=== PATIENT | female | born 1955 | race Caucasian/White ===

== ENCOUNTER → 2016-12-26 | Outpatient (CLI) | payer BC | LOC: MC.RAD 12:48 | DX: Z12.31 Encounter for screening mammogram for malignant neoplasm of breast (principal) ==

== ENCOUNTER → 2017-12-26 | Outpatient (CLI) | payer OTHER | LOC: MC.RAD 12:46 | DX: Z12.31 Encounter for screening mammogram for malignant neoplasm of breast (principal) ==

== ENCOUNTER → 2018-03-18 | Outpatient (CLI) | payer OTHER | LOC: COL.RAD 12:31 | DX: R13.12 Dysphagia, oropharyngeal phase (principal) ==

== ENCOUNTER 2018-03-25 13:30 | Outpatient (RCR) | payer OTHER | END 2018-06-08 | disposition still patient (30) | LOC: WSST | DX: R13.12 Dysphagia, oropharyngeal phase (principal); K21.9 Gastro-esophageal reflux disease without esophagitis; K22.70 Barrett's esophagus without dysplasia; E11.9 Type 2 diabetes mellitus without complications; Z79.84 Long term (current) use of oral hypoglycemic drugs; I10 Essential (primary) hypertension ==

== ENCOUNTER → 2019-01-08 | Outpatient (CLI) | payer BC | LOC: MC.RAD 12:49 | DX: Z12.31 Encounter for screening mammogram for malignant neoplasm of breast (principal) ==

== ENCOUNTER → 2020-02-18 | Outpatient (CLI) | payer BC | LOC: MC.RAD 01-14 13:30 | DX: Z12.31 Encounter for screening mammogram for malignant neoplasm of breast (principal) ==

== ENCOUNTER → 2021-02-20 | Outpatient (CLI) | payer BC ==
[~2021-02-20] MED LIST: ACIPHEX20 MG PO; ASPIRIN 81M81 MG/TA2 PO; FERROUSAL325 MG PO; GLUCOPHAGE500 MG/TAB PO; HCTZ 25MG TAB25 MG PO; LIPITOR 40MG TA40 MG PO; MOBIC15 MG PO; MULTI VITAMINS1 TAB PO; NATURAL MAGNES200 MG PO; TOPROL XL 25MG25 MG PO; VITAMIN D31000 I1 PO; VITAMINC1000TA PO
== END ==
LOC: MC.RAD 11:30
DX: Z12.31 Encounter for screening mammogram for malignant neoplasm of breast (principal)

== ENCOUNTER 2021-07-11 12:05 | Inpatient (IN) | payer MEDICARE ==
[~2021-07-11] VITALS: Ht 162.6 cm; Wt 106.8 kg
[2021-07-11] MEDS ORDERED: GLUCOPHAGE500 MG/TAB PO (12:32)
[2021-07-11] MEDS ORDERED: TOPROL XL 25MG25 MG PO (12:33)
[2021-07-11 13:09] LABS: BASO % 0.1 % (0.0-2.0); GRAN # 6.1 K/mm3 (1.4-6.5); GRAN % 81.5 % (42.2-75.2); HEMOGLOBIN 12.2 g/dl (12.5-16.0); LYMPH % 13.3 % (20.0-51.0); MEAN CELL VOLUME 81 fl (80.0-100.0); MEAN CORPUSCULAR HEMOGLOBIN 27 pg (27.0-31.0); MEAN CORPUSCULAR HGB CONC 34 g/dl (33.0-37.0); MEAN PLATELET VOLUME 9.4 fl (7.4-10.4); MONO # 0.4 K/mm3 (0.1-0.6); MONO % 4.7 % (1.7-9.3); PLATELET COUNT 244 K/mm3 (130-400); RED BLOOD COUNT 4.45 M/mm3 (4.10-5.30); REDCELL DISTRIBUTION WIDTH-CV 15.8 % (11.5-14.5)
[2021-07-11 13:11] LABS: HEMATOCRIT 35.9 % (37.0-47.0)
[2021-07-11 13:24] LABS: ALBUMIN 3.2 gm/dL (3.4-4.8); BILIRUBIN,TOTAL 1.4 mg/dL (0.2-1.2); CALCIUM 9.3 mg/dL (8.4-10.2); CREATININE, serum 1.2 mg/dL (0.57-1.11); POTASSIUM 3.5 mmol/L (3.5-4.5); TOTAL PROTEIN 7.3 gm/dL (6.2-8.1)
[2021-07-11] MEDS ORDERED: ASPIRIN 81M81 MG/TA2 PO (18:14)
[2021-07-11] MEDS ORDERED: VITAMINC1000TA PO (18:14)
[2021-07-11] MEDS ORDERED: FERROUSAL325 MG PO (18:15)
[2021-07-11] MEDS ORDERED: LIPITOR 40MG TA40 MG PO (18:15)
[2021-07-11] MEDS ORDERED: MULTI VITAMINS1 TAB PO (18:16)
[2021-07-11] MEDS ORDERED: MOBIC15 MG PO (18:16)
[2021-07-11] MEDS ORDERED: ACIPHEX20 MG PO (18:17)
[2021-07-11] MEDS ORDERED: HCTZ 25MG TAB25 MG PO (18:19)
[2021-07-11] MEDS ORDERED: NATURAL MAGNES200 MG PO (18:21)
[2021-07-11] MEDS ORDERED: VITAMIN D31000 I1 PO (18:23)
--- NOTE | 2021-07-11 20:06 | NUR ---
Patient is in room, alert and oriented x 4, O2 at 3L NC. SOB with exertion.
[2021-07-11 20:32] VITALS: BP 135/56; PULSE 93; TEMP 987.4
--- NOTE | 2021-07-11 22:52 | NUR ---
Called from lab with critical value reported Ddiemer [phone]. Called Hospitalist to notify multiple times. No answer.
[2021-07-12 01:51] VITALS: BP 132/64; PULSE 86; TEMP 97.4
[2021-07-12 05:19] VITALS: BP 141/68; PULSE 90; TEMP 97.6
--- NOTE | 2021-07-12 07:12 | NUR ---
Patient has been stable along the night. SOB with exertion. Continues with 3L NC. She has not been able to sleep because of the multiple interventions. Shift report given to day RN.
--- NOTE | 2021-07-12 07:30 | NUR ---
DR. SPANGLER NOTIFIED PT DID NOT HAVE DIET ORDER, ORDERED ADA DIET PER VERBAL ORDERS AND BREAKFAST ORDER PLACED FOR PT.
[2021-07-12 08:00] VITALS: BP 141/56; PULSE 91; TEMP 98.3
--- NOTE | 2021-07-12 10:44 | NUR ---
PT JOSH, AOX4, HAD OXYGEN OFF IN HAND AND HAD SAID IT HAD JUST COME OFF WHEN SHE TOOK OFF HER MASK AFTER THE ECHO TECHS HAD LEFT. PT OXYGEN PLACED BACK ON PT, PT SATTING 82% WHEN VITALS TAKEN. STAYED WITH PT AND GRADUALLY TURNED HER UP. STAYED WITH PT 45MIN RECOVERING HER OXYGEN AND ENDED UP ON 12L SATTING 90-91%. PT LABORED BREATHING, HAD NOT GOTTEN OUT OF BED, PLACED PT ON HIGH ABBY TUBING, INSTRUCTED HER TO NOT GET UP WITHOUT OXYGEN ON, PT ASSESSMENT PERFORMED, MEDICATIONS GIVEN, IV ANTIBIOTICS INFUSING, PT HAS COUGH, COUGH SYRUP GIVEN, BREAKFAST BROUGHT IN, NO OTHER NEEDS
[2021-07-12 12:01] VITALS: BP 127/60; PULSE 82; TEMP 98
--- NOTE | 2021-07-12 13:16 | NUR ---
The patient is COVID positive. SW contacted the patient to discuss discharge plan. The patient lives alone in [place]. She reports independence with ADLS and does not have any DME. The patient's PCP is Dr. Madonna Abrams and she receives her medications from [facility]. She reports no difficulties obtaining her meds. The patient does not have a DPOA-HC. SW inquired about completing one while here. The patient was interested in obtaining a form, but requested that SW just place a form on her chart, for when she goes home. She states that she is not and that she has two children: Stephania Alfonso (ph#[phone]) and Jean Castro (ph#[phone]). Stephania lives in [place] and Jean lives in [place], [place]. The patient plans on returning home upon discharge. The patient is currently requiring oxygen. SW to continue to monitor. *Discharge plan: home*
[2021-07-12 17:13] VITALS: BP 125/49; PULSE 79; TEMP 97.7
--- NOTE | 2021-07-12 19:04 | NUR ---
IV REMOVED TO LAC, PT EDUCATED ON OXYGEN LEVEL, BLOOD DRAWN FOR LAB, PT HAS DINNER ORDERED, INSULIN GIVEN, DENIES PAIN AT THIS TIME, NO OTHER NEED
--- NOTE | 2021-07-12 20:30 | NUR ---
Patient is sitted at the edge of the bed, alert and oriented x 4, denies pain, nausea or vomiting. SOB on ex. 10L O2 NC. Tele in place, NSR. Assessment completed, medications provided. No further needs at this time. Call light within reach.
[2021-07-13 00:55] VITALS: BP 146/66; PULSE 70; TEMP 97.6
[2021-07-13 03:38] VITALS: BP 136/61; PULSE 71; TEMP 98.6
--- NOTE | 2021-07-13 06:47 | NUR ---
Patient has been stable all night, she is at 8L O2 NC. Continues with cough. All needs met. Report given to day RN.
[2021-07-13 07:29] LABS: GRAN # 3.4 K/mm3 (1.4-6.5); GRAN % 73.8 % (42.2-75.2); HEMATOCRIT 38.4 % (37.0-47.0); HEMOGLOBIN 12.9 g/dl (12.5-16.0); LYMPH # 0.8 K/mm3 (1.2-3.4); LYMPH % 16.7 % (20.0-51.0); MEAN CELL VOLUME 81 fl (80.0-100.0); MEAN CORPUSCULAR HEMOGLOBIN 27 pg (27.0-31.0); MEAN CORPUSCULAR HGB CONC 34 g/dl (33.0-37.0); MEAN PLATELET VOLUME 9.3 fl (7.4-10.4); MONO # 0.4 K/mm3 (0.1-0.6); MONO % 8.9 % (1.7-9.3); PLATELET COUNT 275 K/mm3 (130-400); RED BLOOD COUNT 4.77 M/mm3 (4.10-5.30); REDCELL DISTRIBUTION WIDTH-CV 15.7 % (11.5-14.5)
[2021-07-13 07:48] LABS: C-REACTIVE PROTEIN 5.52 mg/dL (0.00-0.50); CALCIUM 8.9 mg/dL (8.4-10.2); CREATININE, serum 0.86 mg/dL (0.57-1.11)
[2021-07-13 07:51] LABS: POTASSIUM 2.9 mmol/L (3.5-4.5)
[2021-07-13 07:52] VITALS: BP 111/41; PULSE 73; TEMP 98.8
--- NOTE | 2021-07-13 08:50 | NUR ---
PT PLEASANT, AOX4, DENIES PAIN, WEARING NC AT 7L. ASSESSMENT PERFORMED, MEDICATIONS GIVEN, EDUCATED ON ALL MEDICATIONS GIVEN, BREAKFAST BROUGHT IN, FRESH ICE WATER BROUGHT IN, LOW POTASSIUM CALLED TO DR. SPANGLER AND POTASSIUM PROTOCOL ORDERED VERBALLY. PT GIVEN POTASSIUM, PT REQUESTING SHOWER WHEN HER DA BRINGS PT BELONGINGS, NO OTHER NEEDS
[2021-07-13 12:00] VITALS: BP 133/59; PULSE 73; TEMP 97.4
[2021-07-13 16:00] VITALS: BP 133/59; PULSE 73; TEMP 97.4
[2021-07-13 17:04] LABS: CLOSTRIDIUM DIFF A/B NEG; CLOSTRIDIUM DIFF A/B INTERP No C.diff present
--- NOTE | 2021-07-13 18:40 | NUR ---
PT PLEASANT, IND IN ROOM, SOB WITH ACTIVITY, TYLENOL GIVEN FOR PAIN, NO OTHER NEEDS
[2021-07-13 21:49] VITALS: BP 143/67; PULSE 83; TEMP 97.9
[2021-07-14 00:53] VITALS: BP 130/51; PULSE 70; TEMP 97.8
[2021-07-14 05:24] VITALS: BP 127/54; PULSE 68; TEMP 97.7
[2021-07-14 06:16] LABS: BASO % 0.1 % (0.0-2.0); GRAN # 5.2 K/mm3 (1.4-6.5); GRAN % 74.1 % (42.2-75.2); HEMOGLOBIN 11.5 g/dl (12.5-16.0); LYMPH # 1.2 K/mm3 (1.2-3.4); LYMPH % 17.4 % (20.0-51.0); MEAN CELL VOLUME 83 fl (80.0-100.0); MEAN CORPUSCULAR HEMOGLOBIN 28 pg (27.0-31.0); MEAN CORPUSCULAR HGB CONC 33 g/dl (33.0-37.0); MEAN PLATELET VOLUME 9.2 fl (7.4-10.4); MONO # 0.5 K/mm3 (0.1-0.6); PLATELET COUNT 368 K/mm3 (130-400); RED BLOOD COUNT 4.18 M/mm3 (4.10-5.30); REDCELL DISTRIBUTION WIDTH-CV 15.7 % (11.5-14.5)
[2021-07-14 06:31] LABS: CALCIUM 9.5 mg/dL (8.4-10.2); CREATININE, serum 0.79 mg/dL (0.57-1.11); POTASSIUM 3.6 mmol/L (3.5-4.5)
[2021-07-14 06:40] LABS: HEMATOCRIT 34.5 % (37.0-47.0)
[2021-07-14 08:26] VITALS: BP 138/61; PULSE 71; TEMP 97.9
--- NOTE | 2021-07-14 10:48 | NUR ---
PT ASSESSED. NO COMPLAINTS OF PAIN OR NAUSEA. NO SIGNS OR SYMPTOMS OF DISTRESS. CALL LIGHT WITHIN REACH
[2021-07-14 13:00] VITALS: BP 139/56; PULSE 72; TEMP 98.1
[2021-07-14 16:36] VITALS: BP 139/58; PULSE 80; TEMP 98.1
[2021-07-14 21:51] VITALS: BP 114/36; PULSE 68; TEMP 98.3
[2021-07-15] VITALS (7 sets, daily range): BP systolic 117–150; BP diastolic 43–79; PULSE 60–99; TEMP 97.5–98.6
--- NOTE | 2021-07-15 06:24 | NUR ---
am lab drawn from purple port of PICC w/o difficulty, unable to flush red port and no blood return. pt weaned to 7L O2 this shift from 9L. up ad john in room. SS required @HS
[2021-07-15 07:14] LABS: CALCIUM 9.4 mg/dL (8.4-10.2); CREATININE, serum 0.74 mg/dL (0.57-1.11); POTASSIUM 3.4 mmol/L (3.5-4.5)
[2021-07-15 08:12] LABS: HEMOGLOBIN 10.9 g/dl (12.5-16.0); MEAN CELL VOLUME 83 fl (80.0-100.0); MEAN CORPUSCULAR HEMOGLOBIN 28 pg (27.0-31.0); MEAN CORPUSCULAR HGB CONC 33 g/dl (33.0-37.0); MEAN PLATELET VOLUME 9.4 fl (7.4-10.4); PLATELET COUNT 332 K/mm3 (130-400); RED BLOOD COUNT 3.97 M/mm3 (4.10-5.30); REDCELL DISTRIBUTION WIDTH-CV 15.4 % (11.5-14.5)
[2021-07-15 10:05] LABS: ALBUMIN 2.7 gm/dL (3.4-4.8); BILIRUBIN,DIRECT 0.5 mg/dL (0.0-0.5); BILIRUBIN,TOTAL 1.3 mg/dL (0.2-1.2); TOTAL PROTEIN 5.8 gm/dL (6.2-8.1)
[2021-07-15 11:03] LABS: ANISOCYTOSIS 1+; HYPOCHROMIA 1+; LYMPHOCYTE 22 % (20.0-51.0); NEUTROPHILS 73 % (42.0-75.2); PLATELET ESTIMATE NORMAL (NORMAL)
--- NOTE | 2021-07-15 11:13 | NUR ---
PT ASSESSED. NO COMPLAINTS OF PAIN OR DYSPNEA. NO SIGNS OR SYMPTOMS OF DISTRESS. NO CONCERNS OR QUESTIONS AT THIS TIME. CALL LIGHT WITHIN REACH
[2021-07-16 03:52] VITALS: BP 113/62; PULSE 85; TEMP 97.5
--- NOTE | 2021-07-16 07:27 | NUR ---
pt weaned to 6L this shift, up ad john in room, SS given @HS, taking po well, no c/o pain or discomfort, PICC line patent/secure, to CLARISA.
[2021-07-16 07:47] LABS: HEMOGLOBIN 11.6 g/dl (12.5-16.0); MEAN CELL VOLUME 85 fl (80.0-100.0); MEAN CORPUSCULAR HEMOGLOBIN 27 pg (27.0-31.0); MEAN CORPUSCULAR HGB CONC 32 g/dl (33.0-37.0); MEAN PLATELET VOLUME 9.2 fl (7.4-10.4); PLATELET COUNT 364 K/mm3 (130-400); RED BLOOD COUNT 4.25 M/mm3 (4.10-5.30); REDCELL DISTRIBUTION WIDTH-CV 15.7 % (11.5-14.5)
[2021-07-16 07:54] LABS: HEMATOCRIT 36.1 % (37.0-47.0)
[2021-07-16 07:59] LABS: CALCIUM 9.7 mg/dL (8.4-10.2); CREATININE, serum 0.8 mg/dL (0.57-1.11); POTASSIUM 3.3 mmol/L (3.5-4.5)
[2021-07-16 08:00] VITALS: BP 128/57; PULSE 87; TEMP 97.5
[2021-07-16 09:20] LABS: LYMPHOCYTE 18 % (20.0-51.0); METAMYELOCYTE 1 % (0-0); NEUTROPHILS 78 % (42.0-75.2)
[2021-07-16 09:21] LABS: ANISOCYTOSIS 1+; PLATELET ESTIMATE NORMAL (NORMAL)
[2021-07-16 09:22] LABS: HYPOCHROMIA 1+; OVALOCYTES 1+
--- NOTE | 2021-07-16 11:03 | NUR ---
Scheduled medications given. Shift assessment performed. Patient currently requring 7.5 L of O2 via nasal cannula. Dyspnea upon exertion noted. Patient is afebrile and denies N/V but states that she does have diarrhea. PICC Line in place, flushes with good blood return. No S/S of complications. Patient denies any pain, discomfort, or further needs at this time. Call light in reach. Patient A&O.
[2021-07-16 12:00] VITALS: BP 108/48; PULSE 86; TEMP 98
--- NOTE | 2021-07-16 14:06 | NUR ---
BRENDA contacted the patient to follow up. The patient states that she is doing okay. She remains on 7 liters of oxygen. The patient reports that she still plans on returning home upon discharge. BRENDA discussed home health services and it's benefits. The patient was interested in home health. BRENDA informed her of the different agencies that serve [place]. The patient chose [facility]. BRENDA contacted and faxed a referral to Sally at [facility]. Awaiting screen.
[2021-07-16 17:15] VITALS: BP 111/45; PULSE 81; TEMP 98.3
--- NOTE | 2021-07-16 18:44 | NUR ---
Patient has had an ok day. Currently requiring 7.5L of O2. Denies any pain, discomfort, SOA, or further needs at this time. Call light in reach. VSS. Patient A&O. Insulin given per orders.
--- NOTE | 2021-07-16 20:00 | NUR ---
Assessment complete. Patient is alert and oriented and has no complaints of pain at this time. She is satting 93-95% on 7.5 liters oxygen. Comfort measures provided and call light in reach.
[2021-07-16 20:59] VITALS: BP 112/48; PULSE 84; TEMP 98.3
[2021-07-17] VITALS (7 sets, daily range): BP systolic 110–135; BP diastolic 54–693; PULSE 69–87; TEMP 97.9–98.5
[2021-07-17 06:04] LABS: HEMOGLOBIN 11.3 g/dl (12.5-16.0); MEAN CELL VOLUME 81 fl (80.0-100.0); MEAN CORPUSCULAR HEMOGLOBIN 27 pg (27.0-31.0); MEAN CORPUSCULAR HGB CONC 34 g/dl (33.0-37.0); MEAN PLATELET VOLUME 8.9 fl (7.4-10.4); PLATELET COUNT 355 K/mm3 (130-400); RED BLOOD COUNT 4.13 M/mm3 (4.10-5.30); REDCELL DISTRIBUTION WIDTH-CV 15.6 % (11.5-14.5)
[2021-07-17 06:21] LABS: HEMATOCRIT 33.4 % (37.0-47.0)
[2021-07-17 06:22] LABS: CALCIUM 9.8 mg/dL (8.4-10.2); CREATININE, serum 0.77 mg/dL (0.57-1.11); POTASSIUM 4.1 mmol/L (3.5-4.5)
[2021-07-17 07:41] LABS: EOSINOPHIL 1 % (0-4); LYMPHOCYTE 12 % (20.0-51.0)
[2021-07-17 07:42] LABS: ANISOCYTOSIS 1+; NEUTROPHILS 83 % (42.0-75.2); PLATELET ESTIMATE NORMAL (NORMAL)
--- NOTE | 2021-07-17 19:21 | NUR ---
Patient has had an ok day. Currently requiring 7L of O2 via nasal cannula. Denies any pain, discomfort, SOA, or further needs at this time. VSS. Patient A&O. Patient was able to shower independently today. Insulin given as needed. Call light in reach.
--- NOTE | 2021-07-17 22:00 | NUR ---
ASSESSMENT COMPLETE. PT COOPERATIVE WITH CARES. PT RESTING IN BED NAPPING. PT DENIES PAIN, PALPITATIONS, SOB OR DIZZINESS AT THIS TIME. PT'S BLOOD GLUCOSE HAS BEEN SPIKING PER PT AND SHE BELIEVES IT IS BECAUSE OF THE GLUCERNA SHAKES SHE HAS BEEN GIVEN. PT STATES SHE HAS NO OTHER NEEDS AT THIS TIME. CALL LIGHT WITHIN REACH.
[2021-07-18 03:42] VITALS: BP 130/54; PULSE 70; TEMP 98
--- NOTE | 2021-07-18 05:30 | NUR ---
PT RESTING IN HER RECLINER THIS MORNING. PT HAD AN UNEVENTFUL NIGHT TONIGHT. PT DENIES PAIN, PALPITATIONS, SOB OR DIZZINESS. RT WAS ABLE TO TITRATE PT'S O2 DOWN TO 6L THIS SHIFT. PT STATES SHE HAS NO OTHER NEEDS AT THIS TIME. CALL LIGHT WITHIN REACH.
[2021-07-18 07:00] LABS: BASO % 0.1 % (0.0-2.0); EOS # 0.1 K/mm3 (0.0-0.7); EOS % 1.1 % (0-4.0); GRAN # 8.9 K/mm3 (1.4-6.5); HEMOGLOBIN 11.7 g/dl (12.5-16.0); LYMPH # 1.9 K/mm3 (1.2-3.4); LYMPH % 15.5 % (20.0-51.0); MEAN CELL VOLUME 82 fl (80.0-100.0); MEAN CORPUSCULAR HEMOGLOBIN 28 pg (27.0-31.0); MEAN CORPUSCULAR HGB CONC 34 g/dl (33.0-37.0); MEAN PLATELET VOLUME 9.2 fl (7.4-10.4); MONO # 0.8 K/mm3 (0.1-0.6); PLATELET COUNT 364 K/mm3 (130-400); RED BLOOD COUNT 4.22 M/mm3 (4.10-5.30); REDCELL DISTRIBUTION WIDTH-CV 15.7 % (11.5-14.5)
[2021-07-18 07:17] LABS: HEMATOCRIT 34.7 % (37.0-47.0)
[2021-07-18 07:29] LABS: ALBUMIN 2.6 gm/dL (3.4-4.8); C-REACTIVE PROTEIN 5.58 mg/dL (0.00-0.50); CALCIUM 9.1 mg/dL (8.4-10.2); CREATININE, serum 0.76 mg/dL (0.57-1.11); MAGNESIUM 1.8 mg/dL (1.6-2.6); PHOSPHOROUS 3.8 mg/dL (2.3-4.7)
[2021-07-18 07:39] VITALS: BP 104/53; PULSE 89; TEMP 98
--- NOTE | 2021-07-18 10:38 | NUR ---
Scheduled medications given. Shift assessment performed. Patient currently requiring 6L of O2 via nasal cannula. Patient denies any pain, discomfort, SOA, or further needs at this time. VSS. Patient A&O. Call light in reach.
[2021-07-18 11:41] VITALS: BP 130/50; PULSE 85; TEMP 98.3
[2021-07-18 15:43] VITALS: BP 141/58; PULSE 79; TEMP 98
--- NOTE | 2021-07-18 17:52 | NUR ---
Patient has had a good day. Currently requiring 6L of O2 via nasal cannula. Denies any pain, discomfort, SOA, or any further needs at this time. Patient is afebrile. Denies any N/V/D. VSS. Call light in reach. Patient A&O.
[2021-07-18 19:50] VITALS: BP 113/57; PULSE 51; TEMP 98.3
--- NOTE | 2021-07-18 22:30 | NUR ---
ASSESSMENT COMPLETE. PT COOPERATIVE WITH CARES. PT SITTING ON THE SIDE OF HER BED LISTENING TO THE TV(NOT WATCHING). PT CONTINUES TO HAVE ELEVATED BLOOD SUGERS. INSULIN GIVEN PER ORDERS. PT DENIES PAIN, PALPITATTIONS, SOB OR DIZZINESS. PT TALKED ABOUT THE SUPPORT SHE HAS FROM HER [employer]. PT SAYES SHE FEELS MUCH BETTER TODAY. PT STATES SHE HAS NO OTHER NEEDS AT THIS TIME. CALL LIGHT WITHIN REACH.
[2021-07-18 23:47] VITALS: BP 120/61; PULSE 77; TEMP 97.9
[2021-07-19 04:16] VITALS: BP 124/65; PULSE 65; TEMP 98
--- NOTE | 2021-07-19 06:50 | NUR ---
PT SITTING ON THE SIDE OF HER BED. SHE HAD JUST GOTTEN OUT OF THE BATHROOM. PT REMAINS ON 6L OF O2. PT DENIES PAIN, PALPITATIONS, SOB OR DIZZINESS. PT HAD AN OTHERWISE UNEVENTFUL NIGHT. PT STATES SHE HAS NO OTHER NEEDS AT THIS TIME. CALL LIGHT WITHIN REACH.
[2021-07-19 07:00] LABS: MEAN CELL VOLUME 81 fl (80.0-100.0); MEAN CORPUSCULAR HGB CONC 34 g/dl (33.0-37.0); MEAN PLATELET VOLUME 8.8 fl (7.4-10.4); RED BLOOD COUNT 6.41 M/mm3 (4.10-5.30); REDCELL DISTRIBUTION WIDTH-CV 17.1 % (11.5-14.5)
[2021-07-19 07:23] LABS: ALBUMIN 2.6 gm/dL (3.4-4.8); C-REACTIVE PROTEIN 5.47 mg/dL (0.00-0.50); CALCIUM 9.2 mg/dL (8.4-10.2); CREATININE, serum 0.79 mg/dL (0.57-1.11); MAGNESIUM 1.9 mg/dL (1.6-2.6); PHOSPHOROUS 4.2 mg/dL (2.3-4.7); POTASSIUM 3.8 mmol/L (3.5-4.5)
[2021-07-19 08:11] LABS: HEMATOCRIT 52.2 % (37.0-47.0); MEAN CORPUSCULAR HEMOGLOBIN 27 pg (27.0-31.0)
[2021-07-19 08:13] LABS: HEMOGLOBIN 17.6 g/dl (12.5-16.0); PLATELET COUNT 246 K/mm3 (130-400)
[2021-07-19 08:30] VITALS: BP 99/50; PULSE 83; TEMP 97.7
[2021-07-19 09:49] LABS: ANISOCYTOSIS 1+; BAND 1 % (0-10); LYMPHOCYTE 9 % (20.0-51.0); NEUTROPHILS 84 % (42.0-75.2); NUCLEATED RED BLOOD CELL 1 (0-6); PLATELET ESTIMATE NORMAL (NORMAL)
[2021-07-19 12:21] VITALS: BP 112/59; PULSE 84; TEMP 97.6
[2021-07-19 16:20] VITALS: BP 135/63; PULSE 77; TEMP 97.9
--- NOTE | 2021-07-19 19:00 | NUR ---
RECEIVED CHANGE OF SHIFT REPORT FROM DAY SHIFT RN.
[2021-07-19 20:06] VITALS: BP 133/62; PULSE 73; TEMP 98.2
[2021-07-19 23:35] VITALS: BP 127/53; PULSE 68; TEMP 97.6
[2021-07-20 05:17] VITALS: BP 135/60; PULSE 70; TEMP 98.5
[2021-07-20 06:49] LABS: ALBUMIN 2.7 gm/dL (3.4-4.8); C-REACTIVE PROTEIN 2.82 mg/dL (0.00-0.50); CALCIUM 9.1 mg/dL (8.4-10.2); CREATININE, serum 0.77 mg/dL (0.57-1.11); MAGNESIUM 1.9 mg/dL (1.6-2.6); PHOSPHOROUS 4.2 mg/dL (2.3-4.7); POTASSIUM 3.5 mmol/L (3.5-4.5)
[2021-07-20 07:10] LABS: BASO % 0.2 % (0.0-2.0); EOS % 0.2 % (0-4.0); GRAN # 9.6 K/mm3 (1.4-6.5); GRAN % 72.6 % (42.2-75.2); HEMOGLOBIN 11.4 g/dl (12.5-16.0); LYMPH # 2.3 K/mm3 (1.2-3.4); LYMPH % 17.2 % (20.0-51.0); MEAN CELL VOLUME 82 fl (80.0-100.0); MEAN CORPUSCULAR HEMOGLOBIN 28 pg (27.0-31.0); MEAN CORPUSCULAR HGB CONC 34 g/dl (33.0-37.0); MEAN PLATELET VOLUME 9.6 fl (7.4-10.4); MONO % 7.3 % (1.7-9.3); RED BLOOD COUNT 4.09 M/mm3 (4.10-5.30); REDCELL DISTRIBUTION WIDTH-CV 15.6 % (11.5-14.5)
[2021-07-20 07:11] LABS: HEMATOCRIT 33.5 % (37.0-47.0); PLATELET COUNT 394 K/mm3 (130-400)
--- NOTE | 2021-07-20 07:18 | NUR ---
CHANGE OF SHIFT REPORT GIVEN TO DAY SHIFT RNCARLO. PATIENT RESTED IN BED DURING NIGHT WITH NO REPORTED COMPLAINTS OR NEEDS. OXYGEN CONTINUES PER HI FLOW NASAL CANNULA.
[2021-07-20 08:00] VITALS: BP 130/59; PULSE 74; TEMP 98.3
--- NOTE | 2021-07-20 11:21 | NUR ---
Spoke with patient via room phone on what DMe company she would like to get her oxygen through. Patient reports that she would like her oxygen to be set up through [facility]. DME order signed by serena and faxed to [facility]. Patient's daughter Stephania contact and i notified her of needing to tow picker her mother's oxygen before coming up and picking her mother up. Stephania is agreeable to this plan and contact information to [facility] provided. Patient is receiving HH through [facility]. Collaborated with hospitalist to dc the patient with continued HH services and faxed updates to [facility]. Discharge plan: Home with oxygen and [facility]
[2021-07-20 11:39] VITALS: BP 126/58; PULSE 73; TEMP 98.3
--- NOTE | 2021-07-20 15:33 | NUR ---
PT MET CRITERIA FOR DISCHARGE, VSS. HOME HEALTH ORDERS SENT, PT CURRENTLY REQUIRING 4 L NC. HOME O2 PICKED UP BY DAUGHTER. PICC REMOVED WITH NO COMPLICATIONS. DISCHARGE INSTRUCTIONS REVIEWED. PT VERBALIZED UNDERSTANDING. PT AWARE OF FUTURE FOLLOW UP APPTS. PT DC TO HOME VIA WHEELCHAIR ACCOMPANIED BY [employer].
== END 2021-07-20 15:36 | disposition home health service (06) | DRG 177 ==
LOC: COL.ER 12:05 → MEDICAL 18:00
PROVIDERS: Internal Medicine; Internal Medicine Infectious Disease; Personal Emergency Response Attendant; ADMIT Student in an Organized Health Care Education/Training Program
PROC: 02HV33Z Insertion of Infusion Device into Superior Vena Cava, Percutaneous Approach (ICD-10-PCS; principal; 2021-07-11)
PROC: XW033E5 Introduction of Remdesivir Anti-infective into Peripheral Vein, Percutaneous Approach, New Technology Group 5 (ICD-10-PCS; 2021-07-11)
DX: U07.1 COVID-19 (principal); J96.01 Acute respiratory failure with hypoxia; J12.82 Pneumonia due to coronavirus disease 2019; Z68.41 Body mass index [BMI] 40.0-44.9, adult; E11.9 Type 2 diabetes mellitus without complications; E66.01 Morbid (severe) obesity due to excess calories; I10 Essential (primary) hypertension; E78.5 Hyperlipidemia, unspecified; E87.6 Hypokalemia; Z79.84 Long term (current) use of oral hypoglycemic drugs
CPT/HCPCS: 99222-AI; 99232-AI; 99233-AI; 99239; C1751; J0456; J0696; J1100; J1644; J1815; J3480; J7030; J7050; Q9967

== ENCOUNTER → 2021-11-21 | Outpatient (CLI) | payer MEDICARE | LOC: COL.PUL 11-15 11:30 | DX: R05.9 Cough, unspecified (principal); R91.8 Other nonspecific abnormal finding of lung field; Z86.16 Personal history of COVID-19 ==

== ENCOUNTER → 2022-01-30 | Outpatient (CLI) | payer MEDICARE, BC | LOC: DIA.ED 11:44 | DX: E11.65 Type 2 diabetes mellitus with hyperglycemia (principal) | CPT/HCPCS: G0108 ==

== ENCOUNTER → 2022-03-06 | Outpatient (CLI) | payer MEDICARE, BC | LOC: MC.RAD 13:25 | DX: Z12.31 Encounter for screening mammogram for malignant neoplasm of breast (principal) ==